=== PATIENT | male | born 1940 | race Caucasian/White ===

== ENCOUNTER → 2016-04-30 | Outpatient (REF) | payer MEDICARE, OTHER ==
[~2016-04-30] MED LIST: AMLODIPINE; ASPI-860 PO; ATOR40TA59 PO; CHLO25TA2 PO; CLOP75TA28 PO; ESOM20CA32 PO; GLIM1TAB PO; LOSA25TA2; LSRT50T PO; METF1000 PO; METF500T4 PO; METO-270 PO; METOPROLOL PO; PREDNISONE; TAMS-8 PO; VIAGRA; VIGAMOX
[2016-04-30 17:55] LABS: BASOPHILS % (AUTO) 1 % (0-2); EOSINOPHILS # (AUTO) 0.3 10^3uL; EOSINOPHILS % (AUTO) 3 % (0-4); LYMPHOCYTES # (AUTO) 1.4 X10^3; MEAN CORPUSCULAR HEMOGLOBIN 29.4 PG (26.0-34.0); MEAN CORPUSCULAR HGB CONC 33.3 g/dL (31.0-37.0); MEAN CORPUSCULAR VOLUME 88 FL (80-100); MEAN PLATELET VOLUME 10.9 FL (6.0-9.5); MONOCYTES # (AUTO) 1.1 X10^3; MONOCYTES % (AUTO) 12 % (3-11); NEUTROPHILS # (AUTO) 6.5 X10^3; NEUTROPHILS % (AUTO) 69 % (51-67); PLATELET COUNT 204 10^3uL (150-450); WHITE BLOOD COUNT 9.35 10^3uL (4.0-11.0)
[2016-04-30 18:12] LABS: ALBUMIN 4.2 g/dL (3.4-5.0); ANION GAP 17.3 MEQ/L (3-15); CALCULATED IONIZED CALCIUM 3.8 mg/dL (3.8-4.6); TOTAL PROTEIN 7.6 g/dL (6.4-8.5)
== END ==
LOC: LAB 16:58
PROVIDERS: ATTEND Internal Medicine
DX: K21.9 Gastro-esophageal reflux disease without esophagitis (principal); I10 Essential (primary) hypertension; R10.9 Unspecified abdominal pain
CPT/HCPCS: 80053; 82150; 83690; 85025; 86140

== ENCOUNTER 2016-05-17 21:28 | Emergency (ER) | payer MEDICARE, OTHER ==
[~2016-05-17] VITALS: Ht 175.3 cm; Wt 120.0 kg
[2016-05-17 23:13] LABS: BASOPHILS % (AUTO) 1 % (0-2); EOSINOPHILS # (AUTO) 0.2 10^3uL; EOSINOPHILS % (AUTO) 2 % (0-4); LYMPHOCYTES # (AUTO) 1.4 X10^3; MEAN CORPUSCULAR HEMOGLOBIN 29.7 PG (26.0-34.0); MEAN CORPUSCULAR HGB CONC 33.8 g/dL (31.0-37.0); MEAN CORPUSCULAR VOLUME 88 FL (80-100); MEAN PLATELET VOLUME 10.3 FL (6.0-9.5); MONOCYTES # (AUTO) 1.1 X10^3; MONOCYTES % (AUTO) 11 % (3-11); NEUTROPHILS % (AUTO) 72 % (51-67); PLATELET COUNT 220 10^3uL (150-450)
[2016-05-17 23:14] LABS: BILIRUBIN,URINE Negative (Negative); CLARITY,URINE Clear; COLOR,URINE Yellow; GLUCOSE, URINE (UA) Negative (Negative); LEUKOCYTE ESTERASE ,URINE Negative (Negative)
[2016-05-17 23:18] LABS: ALBUMIN 4.1 g/dL (3.4-5.0); ANION GAP 16.1 MEQ/L (3-15); CALCULATED IONIZED CALCIUM 3.8 mg/dL (3.8-4.6)
[2016-05-17 23:24] LABS: RBC,URINE 0-2 /HPF; URINE CENTRIFUGED VOLUME 12 mL
[2016-05-17] MEDS ORDERED: SIMETHICONE 80 MG (MYLICON) CHEW PO ONE (23:30)
[2016-05-17] MEDS ORDERED: CLOPIDOGREL 75 MG (PLAVIX) TAB PO ONE (23:55)
[2016-05-18 01:22] VITALS: BP 180/104
== END 2016-05-18 01:23 | disposition home or self-care (01) ==
LOC: ED 21:31
DX: R10.84 Generalized abdominal pain (principal)
CPT/HCPCS: 36415; 74022; 80053; 81003; 81015; 83690; 83880; 84484; 85025; 99282; A9270; 80048; 99284

== ENCOUNTER → 2016-05-21 | Outpatient (CLI) | payer MEDICARE, OTHER ==
[2016-05-21 10:38] LABS: ANION GAP 14.2 MEQ/L (3-15)
[2016-05-21 12:45] LABS: BASOPHILS % (AUTO) 0 % (0-2); EOSINOPHILS # (AUTO) 0.5 10^3uL; EOSINOPHILS % (AUTO) 5 % (0-4); LYMPHOCYTES # (AUTO) 1.5 X10^3; MEAN CORPUSCULAR HEMOGLOBIN 29.7 PG (26.0-34.0); MEAN CORPUSCULAR HGB CONC 32.7 g/dL (31.0-37.0); MEAN CORPUSCULAR VOLUME 91 FL (80-100); MEAN PLATELET VOLUME 10.9 FL (6.0-9.5); MONOCYTES # (AUTO) 1.1 X10^3; MONOCYTES % (AUTO) 12 % (3-11); NEUTROPHILS # (AUTO) 6.5 X10^3; NEUTROPHILS % (AUTO) 67 % (51-67); PLATELET COUNT 223 10^3uL (150-450); WHITE BLOOD COUNT 9.65 10^3uL (4.0-11.0)
== END ==
LOC: RAD 09:51
PROVIDERS: ATTEND Internal Medicine
DX: R14.1 Gas pain (principal); R14.0 Abdominal distension (gaseous); K21.9 Gastro-esophageal reflux disease without esophagitis; E11.9 Type 2 diabetes mellitus without complications; I10 Essential (primary) hypertension; R60.0 Localized edema; K76.0 Fatty (change of) liver, not elsewhere classified
CPT/HCPCS: 36415; 76700; 80048; 83516; 84450; 85025; 86140

== ENCOUNTER 2016-06-01 07:05 | Day surgery (SDC) | payer MEDICARE, OTHER ==
[~2016-06-01] VITALS: Ht 175.3 cm; Wt 115.0 kg
[~2016-06-01 07:05] MED LIST changes: -AMLODIPINE; -ASPI-860 PO; -ATOR40TA59 PO; -CHLO25TA2 PO; -CLOP75TA28 PO; -ESOM20CA32 PO; -GLIM1TAB PO; +LACTATED RINGERS 1,000 ML IV SCH; +LIDOCAINE 4% TOPICAL 4.5 ML SYR ONE; -LOSA25TA2; -LSRT50T PO; -METF1000 PO; -METF500T4 PO; -METO-270 PO; -METOPROLOL PO; -PREDNISONE; +SIMETHICONE 40 MG/0.6 ML (MYLICON DROPS) ORAL SYRINGE ONE; +SODIUM CHLORIDE FLUSH 3 ML SYR IV PRN; -TAMS-8 PO; -VIAGRA; -VIGAMOX
[2016-06-01 07:25] VITALS: BP_SYST 171; BP_SYST 172; BP_SYST 177; BP_DIAS 104; BP_DIAS 114
[2016-06-01] MEDS ORDERED: ALFENTANIL 500 MCG/ML (ALFENTA) 5 ML AMP IV ONE ×2 (07:40)
[2016-06-01] MEDS ORDERED: PROPOFOL 20 ML IV ONE (07:40)
[2016-06-01] MEDS ORDERED: MIDAZOLAM 2 MG/2 ML (VERSED) VIAL ONE (07:40)
[2016-06-01] MEDS ORDERED: MIDAZOLAM 2 MG/2 ML (VERSED) VIAL IV ONE (08:05)
--- NOTE | 2016-06-01 08:07 | NUR ---
BLOOD PRESSURE ELEVATED ON ADMISSION. PATIENT RELAXES IN BED DURING ADMISSION PROCESS AND BLOOD PRESSURE RECHECKED WITH NO CHANGE. REPORTED TO Kayla REBOLLAR CRNA. NEW ORDERS RECEIVED. SEE EMAR. Addendum: 06/01/16 at 0927 by Pooja Gary RN BLOOD PRESSURES 151/100 AND 151/118
--- NOTE | 2016-06-01 08:30 | NUR ---
PATIENT RESTING IN BED WITH 2L O2. BLOOD PRESSURE 146/96 O2 90-93% ON 3L. PATIENT TO OR AT THIS TIME.
[2016-06-01] MEDS ORDERED: LIDOCAINE 2% BOLUS 100 MG/5 ML (XYLOCAINE) SYRINGE ONE (08:35)
[2016-06-01 09:16] VITALS: BP 153/90
[2016-06-01 09:43] VITALS: BP 152/94
[2016-06-01 10:12] VITALS: BP 146/90
--- NOTE | 2016-06-01 10:39 | NUR ---
O2 SAT 85-95% ON RA FOR LAST HOUR. PATIENT SLEEPING AT TIMES. O2 SAT SLEEPING VS AWAKE IS NOT CHANGED. THIS REPORTED TO Kayla REBOLLAR CRNA AND DR. COATS PER [facility]. NO NEW ORDERS RECEIVED. OK TO DISCHARGE PATIENT HOME.
== END 2016-06-01 10:45 | disposition home or self-care (01) ==
LOC: ASC 07:05
PROVIDERS: ATTEND Surgery
DX: Z12.11 Encounter for screening for malignant neoplasm of colon (principal); K21.0 Gastro-esophageal reflux disease with esophagitis; K29.50 Unspecified chronic gastritis without bleeding; K44.9 Diaphragmatic hernia without obstruction or gangrene
CPT/HCPCS: 36415; 43239; 84132; 87077; 88305; 88312; 93005; A9270; G0121; J2250; J7120

== ENCOUNTER → 2016-06-26 | Outpatient (CLI) | payer MEDICARE, OTHER ==
[2016-06-26 08:28] LABS: BASOPHILS % (AUTO) 1 % (0-2); EOSINOPHILS # (AUTO) 0.3 10^3uL; EOSINOPHILS % (AUTO) 4 % (0-4); LYMPHOCYTES # (AUTO) 1.8 X10^3; MEAN CORPUSCULAR HEMOGLOBIN 29.6 PG (26.0-34.0); MEAN CORPUSCULAR VOLUME 90 FL (80-100); MEAN PLATELET VOLUME 9.9 FL (6.0-9.5); MONOCYTES # (AUTO) 1.2 X10^3; MONOCYTES % (AUTO) 13 % (3-11); NEUTROPHILS # (AUTO) 5.9 X10^3; NEUTROPHILS % (AUTO) 63 % (51-67); PLATELET COUNT 216 10^3uL (150-450); WHITE BLOOD COUNT 9.36 10^3uL (4.0-11.0)
[2016-06-26 09:24] LABS: ALBUMIN 3.9 g/dL (3.4-5.0); ANION GAP 15.1 MEQ/L (3-15); CALCULATED IONIZED CALCIUM 3.9 mg/dL (3.8-4.6); TOTAL PROTEIN 7.4 g/dL (6.4-8.5)
== END ==
LOC: LAB 08:17
PROVIDERS: ATTEND Internal Medicine
DX: Z00.00 Encounter for general adult medical examination without abnormal findings (principal); I10 Essential (primary) hypertension; K21.9 Gastro-esophageal reflux disease without esophagitis; E11.9 Type 2 diabetes mellitus without complications; E78.4 Other hyperlipidemia; Z12.5 Encounter for screening for malignant neoplasm of prostate
CPT/HCPCS: 36415; 80053; 80061; 82043; 83036; 84443; 85025; G0103; 84153